=== PATIENT | male | born 1970 | race Asian ===

== ENCOUNTER → 2021-06-15 08:30 | Outpatient (CLI) | payer OTHER, SELFPAY ==
--- NOTE | 2021-06-15 | DI.US.S_ITS ---
PROCEDURE: US THYROID INDICATIONS: NONTOXIC DIFFUSE GOITER TECHNIQUE: Real-time scanning was performed of the thyroid gland, with image documentation. COMPARISON: None. FINDINGS: Right: Thyroid lobe measures 4.1 x 1.5 x 1.6 cm, and is homogeneous in echotexture. Left: Thyroid lobe measures 4.5 x 1.8 x 1.4 cm, and is homogenous in echotexture. Isthmus: 3 mm thick. IMPRESSION: Normal thyroid, without nodules seen. ACR TI-RADS definitions and recommendations: TI-RADS 1 (benign): 0 points. FNA not needed. TI-RADS 2 (not suspicious): 2 points. FNA not needed. TI-RADS 3 (mildly suspicious): 3 points. * FNA if 2.5 cm or larger, follow up if 1.5 cm or larger (at 1, 3, and 5 years). TI-RADS 4 (moderately suspicious): 4-6 points. * FNA if 1.5 cm or larger, follow up if 1 cm or larger (at 1, 2, 3, and 5 years). TI-RADS 5 (highly suspicious): 7 points or more. * FNA if 1 cm or larger, follow up if 0.5 cm or larger (every year for 5 years). Dictated by: Vick Lamar M.D. on 06/15/2021 at 8:40 Approved by: Vick Lamar M.D. on 06/15/2021 at 8:40
== END ==
PROVIDERS: PCP Nurse Practitioner Family; Referring Provider Nurse Practitioner Family; Visit Provider Nurse Practitioner Family
DX: E04.0 Nontoxic diffuse goiter (principal)
CPT/HCPCS: 76536

== ENCOUNTER → 2022-03-09 15:12 | Outpatient (CLI) | payer OTHER, SELFPAY ==
--- NOTE | 2022-03-09 | DI.RAD.S_ITS ---
PROCEDURE: XR CHEST 2V INDICATIONS: ongoing cough TECHNIQUE: 2 views of the chest were acquired. COMPARISON: None. FINDINGS: Surgical changes and devices: None. Lungs and pleura: Lungs are clear. No pleural effusions or pneumothorax. Mediastinum: Mediastinal contours are normal. Heart size is normal. Bones and chest wall: No suspicious bony abnormalities. Soft tissues appear unremarkable. IMPRESSION: No acute cardiopulmonary abnormality. Dictated by: Maurice Rosales M.D. on 03/09/2022 at 16:26 Approved by: Maurice Rosales M.D. on 03/09/2022 at 16:26
== END ==
PROVIDERS: PCP Nurse Practitioner Family; Referring Provider Naturopath; Visit Provider Naturopath
DX: R05.3 Chronic cough (principal)
CPT/HCPCS: 71046

== ENCOUNTER → 2023-06-06 07:18 | Outpatient (CLI) | payer OTHER, SELFPAY ==
--- NOTE | 2023-06-06 | DI.US.S_ITS ---
PROCEDURE: US ABDOMEN LIMITED INDICATIONS: ELEVATED LFTs TECHNIQUE: Real-time focused scanning was performed of the abdomen, with image documentation. COMPARISON: None. FINDINGS: Liver measures 13.1 cm with steatosis. No gallstones. Wall thickness measures 3 mm. Common bile duct is not well seen although there is no gross intrahepatic or extrahepatic biliary dilation. Visualized portions of the pancreas are unremarkable. IMPRESSION: Hepatic steatosis. Dictated by: Geni Novoa M.D. on 06/06/2023 at 13:41 Approved by: Geni Novoa M.D. on 06/06/2023 at 13:41
== END ==
PROVIDERS: PCP Nurse Practitioner Family; Referring Provider Nurse Practitioner Family; Visit Provider Nurse Practitioner Family
DX: K76.0 Fatty (change of) liver, not elsewhere classified (principal); R74.01 Elevation of levels of liver transaminase levels
CPT/HCPCS: 76705